=== PATIENT | male | born 1950 | race Caucasian/White ===

== ENCOUNTER 2020-05-16 12:08 | Day surgery (SDC) | payer MEDICARE, MEDICAID ==
[2020-05-11 13:28] LABS: BASOPHILS # (AUTO) 0.1 X10'3 (0-0.2); BASOPHILS % (AUTO) 0.7 % (0-1); EOSINOPHILS # (AUTO) 0.3 X10'3 (0-0.9); EOSINOPHILS % (AUTO) 2.3 % (0-6); HEMOGLOBIN 13.2 g/dl (14.0-17.9); LYMPHOCYTES # (AUTO) 3.1 X10'3 (1.1-4.8); LYMPHOCYTES % (AUTO) 24.7 % (21-51); MEAN CORPUSCULAR HEMOGLOBIN 33.3 PG (27.0-31.0); MEAN PLATELET VOLUME 7.4 FL (7.4-10.4); MONOCYTES # (AUTO) 0.8 X10'3 (0-0.9); MONOCYTES % (AUTO) 6.1 % (2-12); NEUTROPHILS # (AUTO) 8.3 X10'3 (1.8-7.7); NEUTROPHILS % (AUTO) 66.2 % (42-75); PLATELET COUNT 292 X10'3 (140-440); RED BLOOD COUNT 3.96 X10'6 (4.70-6.10); RED CELL DISTRIBUTION WIDTH 14.5 % (11.5-14.5); WHITE BLOOD COUNT 12.5 X10'3 (4.5-11.0)
[2020-05-11 13:38] LABS: ALBUMIN 3.7 G/DL (3.4-5.0); ANION GAP 7 (8-16); BLOOD UREA NITROGEN 19 MG/DL (7-18); BUN/CREATININE RATIO 18.3 (5.4-32.0); CALCIUM 9.4 MG/DL (8.5-10.1); CHLORIDE 105 MMOL/L (99-107); CREATININE 1.04 MG/DL (0.60-1.10); GLUCOSE 98 MG/DL (70-104); POTASSIUM 4.1 MMOL/L (3.5-5.1); SODIUM 142 MMOL/L (135-145); TOTAL CARBON DIOXIDE 30.1 MMOL/L (24-32); eGFR 71 ML/MIN
[2020-05-11 13:43] LABS: PARTIAL THROMBOPLASTIN TIME 29 SECONDS (22-32)
[2020-05-16] VITALS (10 sets, daily range): BP systolic 120–172; BP diastolic 52–86
[~2020-05-16] VITALS: Ht 170.2 cm; Wt 66.4 kg
[~2020-05-16 12:08] MED LIST: ASPI-1265 PO; LISI10TA27 PO; SPIIN INH
[2020-05-16] MEDS ORDERED: normal saline 1,000 ML IV SCH (12:40)
[2020-05-16] MEDS ORDERED: LORazepam 0.5 MG tablet PO PRN (12:40)
[2020-05-16] MEDS ORDERED: LIDOcaine/PRILOcaine 5gm cream TP ONE (12:40)
[2020-05-16] MEDS ORDERED: diphenhydrAMINE 25mg capsule PO PRN (12:40)
[2020-05-16] MEDS ORDERED: LISI20TA28 PO (13:54)
[2020-05-16] MEDS ORDERED: METO25TA6 PO (13:55)
[2020-05-16] MEDS ORDERED: LIDOcaine 1% (10mg/ml)w/preservative injection 20ml MDV ONE (14:16)
[2020-05-16] MEDS ORDERED: verapamil 2.5 mg/ml inj IV ONE (14:16)
[2020-05-16] MEDS ORDERED: nitroGLYCERIN-Tridil 50MG/D5W 250 ML IV ONE (14:16)
[2020-05-16] MEDS ORDERED: fentaNYL/PF 50MCG/1 ML 2ML syringe ONE (14:16)
[2020-05-16] MEDS ORDERED: midazolam 1 mg/ML 2ml injection ONE (14:16)
[2020-05-16] MEDS ORDERED: heparin 1,000unit/ml 10ml vial 10 ML ONE ×2 (14:17→14:43)
[2020-05-16] MEDS ORDERED: iohexol 350MG/ML 100ml bottle IV ONE ×2 (14:17→14:43)
[2020-05-16] MEDS ORDERED: ticagrelor 90mg tablet ONE (15:04)
[2020-05-16] MEDS ORDERED: ondansetron/PF 4mg/2ml inj IV PRN (16:00)
[2020-05-16] MEDS ORDERED: normal saline 1000ml 1,000 ML IV SCH (16:00)
[2020-05-16] MEDS ORDERED: proCHLORperazine 10 MG/2 ml inj IV PRN (16:00)
[2020-05-16] MEDS ORDERED: nitroGLYCERIN 0.4mg SUBLingual tab SL PRN (16:00)
[2020-05-16] MEDS ORDERED: OXAZEpam 15mg capsule PO PRN (16:00)
[2020-05-16] MEDS ORDERED: FLU VACC QS2020-21(6MOS UP)/PF 60 MCG/0.5 ML SYRINGE IMVAC ONE (18:25)
[2020-05-17] MEDS ORDERED: pneumococcal 23-VAL P-sac vacc 25 mcg/0.5ml vial IMVAC ONE (10:00)
== END 2020-05-16 19:30 | disposition home or self-care (01) ==
LOC: SSTAY O 12:08
PROVIDERS: ATTEND Internal Medicine Interventional Cardiology
DX: R94.39 Abnormal result of other cardiovascular function study (principal); R07.9 Chest pain, unspecified; I25.10 Atherosclerotic heart disease of native coronary artery without angina pectoris; I25.82 Chronic total occlusion of coronary artery; Z23 Encounter for immunization; J43.9 Emphysema, unspecified; I10 Essential (primary) hypertension; Z79.01 Long term (current) use of anticoagulants; Z79.82 Long term (current) use of aspirin; Z79.899 Other long term (current) drug therapy; Z98.890 Other specified postprocedural states; Z87.891 Personal history of nicotine dependence
CPT/HCPCS: 36415; 80048; 85025; 85610; 85730; 90732; 93005; 93458; 99152; C1725; C1751; C1769; C1874; C1894; C9600; G0008; G0009; J1644; J2001; J2250; J3010; J7030; Q0163; Q2039; Q9967; 99153; A4620; A5120; J3490

== ENCOUNTER 2021-08-07 10:51 | Day surgery (SDC) | payer MEDICARE, MEDICAID ==
[~2021-08-07] VITALS: Ht 170.2 cm; Wt 62.8 kg
[~2021-08-07 10:51] MED LIST changes: -LISI10TA27 PO; +LISI20TA28 PO; +LOP25T PO
[2021-08-07] MEDS ORDERED: ROSU20TA31 PO (11:38)
[2021-08-07] MEDS ORDERED: TICA90TA2 PO (11:38)
[2021-08-07] MEDS ORDERED: PANT40TA54 PO (11:38)
[2021-08-07] MEDS ORDERED: midazolam 1 mg/ML 2ml injection ONE (11:59)
[2021-08-07] MEDS ORDERED: fentaNYL/PF 50MCG/1 ML 2ML syringe ONE (12:00)
[2021-08-07] MEDS ORDERED: LIDOcaine 1%/PF 5ML 10 MG/ML VIAL ONE (12:00)
[2021-08-07] MEDS ORDERED: heparin sodium, porcine/PF 100unit/ml 5ML syringe ONE (12:00)
[2021-08-07] MEDS ORDERED: normal saline 1000ml 1,000 ML IV PRN (12:10)
[2021-08-07] MEDS ORDERED: normal saline 1000ml 1,000 ML IV SCH (12:20)
[2021-08-07 13:24] VITALS: BP 149/82
[2021-08-07 13:33] VITALS: BP 165/93
[2021-08-07 13:39] VITALS: BP 136/81
[2021-08-07 13:54] VITALS: BP 132/69
[2021-08-07 14:09] VITALS: BP 130/78
[2021-08-07 14:24] VITALS: BP 140/74
== END 2021-08-07 15:00 | disposition home or self-care (01) ==
LOC: SSTAY O 10:51
PROVIDERS: ATTEND Radiology Diagnostic Radiology
DX: C34.11 Malignant neoplasm of upper lobe, right bronchus or lung (principal); I25.10 Atherosclerotic heart disease of native coronary artery without angina pectoris; I10 Essential (primary) hypertension; E78.00 Pure hypercholesterolemia, unspecified; Z95.5 Presence of coronary angioplasty implant and graft; Z79.899 Other long term (current) drug therapy; Z79.82 Long term (current) use of aspirin
CPT/HCPCS: 36561; 76937; 77001; 99152; C1769; C1788; C1894; J1642; J2250; J3010; J3490; 99153

== ENCOUNTER 2021-08-20 08:09 | Emergency (ER) | payer MEDICARE, MEDICAID ==
[~2021-08-20] VITALS: Ht 170.2 cm; Wt 65.9 kg
[~2021-08-20 08:09] MED LIST changes: +PANT40TA54 PO; +ROSU20TA31 PO; +TICA90TA2 PO
[2021-08-20] MEDS ORDERED: bisacodyl 5mg tablet.DR PO ONE (08:40)
[2021-08-20] MEDS ORDERED: normal saline 1000ml 1,000 ML IV ONE (08:40)
[2021-08-20 09:12] LABS: BASOPHILS % (AUTO) 0.2 % (0-1); EOSINOPHILS # (AUTO) 0.1 X10'3 (0-0.9); EOSINOPHILS % (AUTO) 0.5 % (0-6); HEMOGLOBIN 12.3 g/dl (14.0-17.9); LYMPHOCYTES # (AUTO) 1.5 X10'3 (1.1-4.8); LYMPHOCYTES % (AUTO) 10.3 % (21-51); MEAN CORPUSCULAR HEMOGLOBIN 31.8 PG (27.0-31.0); MEAN CORPUSCULAR HGB CONC 33.4 g/dL (33.0-36.5); MEAN CORPUSCULAR VOLUME 95.2 FL (78-98); MEAN PLATELET VOLUME 7.5 FL (7.4-10.4); MONOCYTES # (AUTO) 0.4 X10'3 (0-0.9); MONOCYTES % (AUTO) 2.6 % (2-12); NEUTROPHILS # (AUTO) 12.6 X10'3 (1.8-7.7); NEUTROPHILS % (AUTO) 86.4 % (42-75); PLATELET COUNT 306 X10'3 (140-440); RED BLOOD COUNT 3.89 X10'6 (4.70-6.10); RED CELL DISTRIBUTION WIDTH 16.4 % (11.5-14.5); WHITE BLOOD COUNT 14.6 X10'3 (4.5-11.0)
[2021-08-20 09:26] LABS: ALANINE AMINOTRANSFERASE 24 U/L (12-78); ALBUMIN 2.9 G/DL (3.4-5.0); ALBUMIN/GLOBULIN RATIO 0.7 (1.1-1.5); ALKALINE PHOSPHATASE 100 IU/L (46-116); ANION GAP 7 (8-16); ASPARTATE AMINO TRANSFERASE 21 U/L (10-37); BILIRUBIN,TOTAL 0.4 MG/DL (0.1-1.0); BLOOD UREA NITROGEN 35 MG/DL (7-18); BUN/CREATININE RATIO 30.4 (5.4-32.0); CALCIUM 8.6 MG/DL (8.5-10.1); CHLORIDE 103 MMOL/L (99-107); CREATININE 1.15 MG/DL (0.60-1.10); GLUCOSE 96 MG/DL (70-104); MAGNESIUM 2.3 MG/DL (1.5-2.4); POTASSIUM 4.8 MMOL/L (3.5-5.1); SODIUM 135 MMOL/L (135-145); TOTAL CARBON DIOXIDE 24.9 MMOL/L (24-32); TOTAL PROTEIN 7.3 G/DL (6.4-8.2); eGFR 63 ML/MIN
[2021-08-20] MEDS ORDERED: LIDOcaine Viscous 15ml cup MM ONE (10:45)
--- NOTE | 2021-08-20 11:36 | NUR ---
nikita scott at bedside manually disimpacting pt with yfn bah rn at bedside assisting
[2021-08-20 12:07] VITALS: BP 165/79
[2021-08-20] MEDS ORDERED: BISA-78 PO (12:20)
[2021-08-20] MEDS ORDERED: POLY119P2 PO (12:20)
== END 2021-08-20 12:57 | disposition home or self-care (01) ==
LOC: ER 08:10
DX: K56.41 Fecal impaction (principal); E86.0 Dehydration; K62.5 Hemorrhage of anus and rectum; Z85.118 Personal history of other malignant neoplasm of bronchus and lung; Z79.82 Long term (current) use of aspirin; Z79.899 Other long term (current) drug therapy
CPT/HCPCS: 36415; 74018; 74176; 80053; 83735; 84145; 85025; 96360; 99285; J7030

== ENCOUNTER 2021-09-07 15:40 | Inpatient (IN) | payer MEDICARE, MEDICAID ==
[~2021-09-07] VITALS: Ht 170.2 cm; Wt 64.6 kg
[~2021-09-07 15:40] MED LIST changes: +BISA-78 PO; +POLY119P2 PO
[2021-09-07 17:12] LABS: BASOPHILS % (AUTO) 0.1 % (0-1); EOSINOPHILS % (AUTO) 0 % (0-6); HEMATOCRIT 33.7 % (42.0-52.0); HEMOGLOBIN 11.2 g/dl (14.0-17.9); LYMPHOCYTES # (AUTO) 0.3 X10'3 (1.1-4.8); LYMPHOCYTES % (AUTO) 2.3 % (21-51); MEAN CORPUSCULAR HEMOGLOBIN 31.3 PG (27.0-31.0); MEAN CORPUSCULAR HGB CONC 33.1 g/dL (33.0-36.5); MEAN CORPUSCULAR VOLUME 94.4 FL (78-98); MEAN PLATELET VOLUME 6.9 FL (7.4-10.4); MONOCYTES # (AUTO) 0.4 X10'3 (0-0.9); MONOCYTES % (AUTO) 3.2 % (2-12); NEUTROPHILS # (AUTO) 10.5 X10'3 (1.8-7.7); NEUTROPHILS % (AUTO) 94.4 % (42-75); PLATELET COUNT 126 X10'3 (140-440); RED BLOOD COUNT 3.57 X10'6 (4.70-6.10); RED CELL DISTRIBUTION WIDTH 16.8 % (11.5-14.5); WHITE BLOOD COUNT 11.1 X10'3 (4.5-11.0)
[2021-09-07 17:22] LABS: ALANINE AMINOTRANSFERASE 29 U/L (12-78); ALBUMIN 3.3 G/DL (3.4-5.0); ALBUMIN/GLOBULIN RATIO 0.8 (1.1-1.5); ALKALINE PHOSPHATASE 95 IU/L (46-116); ANION GAP 10 (8-16); ASPARTATE AMINO TRANSFERASE 22 U/L (10-37); BILIRUBIN,TOTAL 0.3 MG/DL (0.1-1.0); BLOOD UREA NITROGEN 30 MG/DL (7-18); BUN/CREATININE RATIO 23.1 (5.4-32.0); CALCIUM 8.9 MG/DL (8.5-10.1); CHLORIDE 101 MMOL/L (99-107); GLUCOSE 141 MG/DL (70-104); LIPASE 105 U/L (73-393); POTASSIUM 4.9 MMOL/L (3.5-5.1); SODIUM 138 MMOL/L (135-145); TOTAL CARBON DIOXIDE 26.9 MMOL/L (24-32); TOTAL PROTEIN 7.5 G/DL (6.4-8.2); eGFR 55 ML/MIN
[2021-09-07] MEDS ORDERED: temazepam 15mg capsule PO PRN (21:00)
[2021-09-07] MEDS ORDERED: mag hydrox/Alum hydrox/simeth 30ml oral suspension PO PRN (22:25)
[2021-09-07] MEDS ORDERED: bisacodyl 10mg suppository rectal RC PRN (22:25)
[2021-09-07] MEDS ORDERED: ipratropium/albuterol 3ml nebule NEB PRN (22:25)
[2021-09-07] MEDS ORDERED: diphenhydrAMINE 25mg capsule PO PRN (22:25)
[2021-09-07] MEDS ORDERED: HYDROcodone/acetaminophen 5mg/325mg tablet PO PRN (22:25)
[2021-09-07] MEDS ORDERED: diphenhydrAMINE 50 mg/ml inj IV PRN (22:25)
[2021-09-07] MEDS ORDERED: ondansetron 4mg rapidly disintigrating tab PO PRN (22:25)
[2021-09-07] MEDS ORDERED: acetaminophen 650mg rectal suppository RC PRN (22:25)
[2021-09-07] MEDS ORDERED: morphine 2 MG/ML inj. syringe IV PRN ×2 (22:25)
[2021-09-07] MEDS ORDERED: ondansetron/PF 4mg/2ml inj IV PRN (22:25)
[2021-09-07] MEDS ORDERED: magnesium hydroxide 30ml (MOM) UD suspension PO PRN (22:25)
[2021-09-07] MEDS ORDERED: acetaminophen 325mg tablet PO PRN ×2 (22:25)
[2021-09-07 22:53] LABS: HEMOGLOBIN A1C 6.2 % (4.5-6.2)
[2021-09-07 22:54] LABS: MAGNESIUM 2.1 MG/DL (1.5-2.4); PHOSPHORUS 4.1 MG/DL (2.3-4.5)
[2021-09-07] MEDS: dextrose 5%-1/2 normal saline 1,000 ML IV SCH (23:16)
[2021-09-07] MEDS: cefTRIAXone 1g/NS 100ml IVPB 100 ML IV SCH (23:31)
[2021-09-07 23:52] LABS: CREATINE KINASE 59 U/L (39-308)
[2021-09-08] VITALS (7 sets, daily range): BP systolic 106–150; BP diastolic 63–81
[2021-09-08 00:08] LABS: CLARITY,URINE SLIGHTLY CLOUDY (Clear); COLOR,URINE YELLOW (Yellow); GLUCOSE, URINE NEGATIVE (Neg); KETONES,URINE NEGATIVE (Neg); LEUKOCYTE ESTERASE ,URINE SMALL (Neg); NITRITES, URINE NEGATIVE (Neg); OCCULT BLOOD,URINE MODERATE (Neg); PROTEIN,URINE NEGATIVE (Neg); UROBILINOGEN,URINE 0.2 E.U/dL (0.2-1.0)
[2021-09-08] MEDS: azithromycin/NS 500mg/250ml 250 ML IV SCH (00:20)
[2021-09-08 00:21] LABS: UA COLLECTION TYPE CLN CATCH MIDSTREAM
[2021-09-08 00:22] LABS: BACTERIA,URINE NONE SEEN /HPF (Neg); SQUAMOUS EPITHELIAL CELL,UR FEW /LPF (FEW); WBC CLUMPS,URINE FEW /HPF (NEGATIVE); WBC,URINE 30-50 /HPF (0-4)
[2021-09-08] MEDS: mineral oil 133ml enema RC PRN ×2 (01:03→13:41)
[2021-09-08] MEDS ORDERED: ONDA-104 PO (05:10)
[2021-09-08] MEDS ORDERED: DOCU-148 PO (05:10)
[2021-09-08] MEDS ORDERED: POLY17PO59 PO (05:10)
[2021-09-08] MEDS ORDERED: METO-395 PO (05:10)
[2021-09-08 06:58] LABS: APTT 26 SECONDS (22-32)
[2021-09-08 07:00] LABS: BASOPHILS % (AUTO) 0.2 % (0-1); EOSINOPHILS % (AUTO) 0.2 % (0-6); HEMOGLOBIN 10.1 g/dl (14.0-17.9); LYMPHOCYTES # (AUTO) 0.3 X10'3 (1.1-4.8); LYMPHOCYTES % (AUTO) 4.5 % (21-51); MEAN CORPUSCULAR HEMOGLOBIN 32.1 PG (27.0-31.0); MEAN CORPUSCULAR HGB CONC 33.6 g/dL (33.0-36.5); MEAN CORPUSCULAR VOLUME 95.6 FL (78-98); MEAN PLATELET VOLUME 7.3 FL (7.4-10.4); MONOCYTES # (AUTO) 0.5 X10'3 (0-0.9); MONOCYTES % (AUTO) 6.3 % (2-12); NEUTROPHILS # (AUTO) 6.4 X10'3 (1.8-7.7); NEUTROPHILS % (AUTO) 88.8 % (42-75); PLATELET COUNT 102 X10'3 (140-440); RED BLOOD COUNT 3.13 X10'6 (4.70-6.10); RED CELL DISTRIBUTION WIDTH 16.8 % (11.5-14.5); WHITE BLOOD COUNT 7.2 X10'3 (4.5-11.0)
[2021-09-08 07:15] LABS: ALANINE AMINOTRANSFERASE 21 U/L (12-78); ALBUMIN 2.6 G/DL (3.4-5.0); ALBUMIN/GLOBULIN RATIO 0.8 (1.1-1.5); ALKALINE PHOSPHATASE 79 IU/L (46-116); ANION GAP 7 (8-16); ASPARTATE AMINO TRANSFERASE 21 U/L (10-37); BILIRUBIN,TOTAL 0.2 MG/DL (0.1-1.0); BLOOD UREA NITROGEN 31 MG/DL (7-18); BUN/CREATININE RATIO 31.3 (5.4-32.0); CHLORIDE 105 MMOL/L (99-107); CHOL/HDL RATIO 3.3 (0.00-4.99); CHOLESTEROL 121 MG/DL (0-200); CREATININE 0.99 MG/DL (0.60-1.10); GLUCOSE 102 MG/DL (70-104); HDL CHOLESTEROL 37 MG/DL (35-60); LDL CHOLESTEROL 58 MG/DL (50-100); POTASSIUM 4.1 MMOL/L (3.5-5.1); SODIUM 136 MMOL/L (135-145); TRIGLYCERIDES 176 MG/DL (20-135); eGFR 75 ML/MIN
[2021-09-08] MEDS: heparin, porcine 5000 units/ml vial SQ SCH ×2 (08:00→22:02)
[2021-09-08] MEDS: dextrose 5%-1/2 normal saline 1,000 ML IV SCH ×2 (08:25→21:02)
[2021-09-08] MEDS: methylPREDNISolone sod succ 125mg/2ml vial IV SCH ×2 (09:01→21:02)
[2021-09-08] MEDS: docusate sod 100mg capsule PO SCH ×2 (09:02→21:58)
[2021-09-08] MEDS: nicotine 21mg patch - 24 hr TD SCH (09:03)
--- NOTE | 2021-09-08 18:40 | NUR ---
Patient in room PCU 3025. I have received report from mahendra mercado and had the opportunity to ask questions and assume patient care.
[2021-09-09 02:00] VITALS: BP 113/67
--- NOTE | 2021-09-09 04:06 | NUR ---
AGREE WITH THERMODYNAMICS TEACHER ASSESSMENT CHARTED Addendum: 09/09/21 at 0407 by Anahy Ruth RN AGREE WITH THERMODYNAMICS TEACHER PHYSICAL ASSESSMENT CHARTED
[2021-09-09] MEDS: dextrose 5%-1/2 normal saline 1,000 ML IV SCH ×2 (04:25→05:59)
[2021-09-09 06:12] LABS: BASOPHILS % (AUTO) 0 % (0-1); EOSINOPHILS % (AUTO) 0 % (0-6); HEMATOCRIT 27.9 % (42.0-52.0); HEMOGLOBIN 9.3 g/dl (14.0-17.9); LYMPHOCYTES # (AUTO) 0.4 X10'3 (1.1-4.8); LYMPHOCYTES % (AUTO) 7.2 % (21-51); MEAN CORPUSCULAR HEMOGLOBIN 32.1 PG (27.0-31.0); MEAN CORPUSCULAR HGB CONC 33.4 g/dL (33.0-36.5); MEAN PLATELET VOLUME 7.1 FL (7.4-10.4); MONOCYTES # (AUTO) 0.2 X10'3 (0-0.9); MONOCYTES % (AUTO) 3.7 % (2-12); NEUTROPHILS # (AUTO) 4.3 X10'3 (1.8-7.7); NEUTROPHILS % (AUTO) 89.1 % (42-75); PLATELET COUNT 90 X10'3 (140-440); RED CELL DISTRIBUTION WIDTH 16.9 % (11.5-14.5); WHITE BLOOD COUNT 4.9 X10'3 (4.5-11.0)
[2021-09-09 06:32] LABS: ALANINE AMINOTRANSFERASE 20 U/L (12-78); ALBUMIN 2.5 G/DL (3.4-5.0); ALBUMIN/GLOBULIN RATIO 0.8 (1.1-1.5); ALKALINE PHOSPHATASE 70 IU/L (46-116); ANION GAP 9 (8-16); ASPARTATE AMINO TRANSFERASE 16 U/L (10-37); BILIRUBIN,TOTAL 0.1 MG/DL (0.1-1.0); BLOOD UREA NITROGEN 18 MG/DL (7-18); BUN/CREATININE RATIO 20.7 (5.4-32.0); CHLORIDE 107 MMOL/L (99-107); CREATININE 0.87 MG/DL (0.60-1.10); GLUCOSE 138 MG/DL (70-104); POTASSIUM 4.7 MMOL/L (3.5-5.1); SODIUM 140 MMOL/L (135-145); TOTAL CARBON DIOXIDE 24.3 MMOL/L (24-32); TOTAL PROTEIN 5.8 G/DL (6.4-8.2); eGFR 87 ML/MIN
--- NOTE | 2021-09-09 06:37 | NUR ---
Problems reprioritized. Patient report given, questions answered & plan of care reviewed with juan mercado.
[2021-09-09 07:00] VITALS: BP 141/72
--- NOTE | 2021-09-09 07:25 | NUR ---
Patient in room PCU 3025. I have received report from Ghada ROLLE and had the opportunity to ask questions and assume patient care.
[2021-09-09] MEDS ORDERED: FLO0.4C PO (07:53)
[2021-09-09] MEDS ORDERED: SENN-263 PO (07:53)
[2021-09-09] MEDS ORDERED: NICO-630 TOP (07:53)
[2021-09-09] MEDS ORDERED: LEVO500T90 PO (07:54)
[2021-09-09] MEDS: docusate sod 100mg capsule PO SCH (08:00)
[2021-09-09] MEDS: heparin, porcine 5000 units/ml vial SQ SCH (08:00)
[2021-09-09] MEDS: nicotine 21mg patch - 24 hr TD SCH (08:00)
[2021-09-09] MEDS: azithromycin/NS 500mg/250ml 250 ML IV SCH (09:15)
[2021-09-09] MEDS: methylPREDNISolone sod succ 125mg/2ml vial IV SCH (09:15)
[2021-09-09] MEDS: cefTRIAXone 1g/NS 100ml IVPB 100 ML IV SCH (09:15)
--- NOTE | 2021-09-09 13:00 | NUR ---
Discharge instructions reviewed and questions answered. Both IV's from R and L AC removed, catheters intact. Patients belongings gathered, and patient wheeled down to lobby and outside. Patient was in stable condition upon leaving [facility].
== END 2021-09-09 12:49 | disposition home or self-care (01) | DRG 690 ==
LOC: ER 15:41 → ED HOLD 22:31 → PCU 3S 09-08 00:05
PROVIDERS: ADMIT Family Medicine; ATTEND Internal Medicine
DX: N39.0 Urinary tract infection, site not specified (principal); C34.91 Malignant neoplasm of unspecified part of right bronchus or lung; J44.1 Chronic obstructive pulmonary disease with (acute) exacerbation; K56.609 Unspecified intestinal obstruction, unspecified as to partial versus complete obstruction; N17.9 Acute kidney failure, unspecified; K59.00 Constipation, unspecified; D64.9 Anemia, unspecified; D69.6 Thrombocytopenia, unspecified; E78.5 Hyperlipidemia, unspecified; I12.9 Hypertensive chronic kidney disease with stage 1 through stage 4 chronic kidney disease, or unspecified chronic kidney disease; K21.9 Gastro-esophageal reflux disease without esophagitis; N18.9 Chronic kidney disease, unspecified; F17.220 Nicotine dependence, chewing tobacco, uncomplicated; Z79.82 Long term (current) use of aspirin; Z79.899 Other long term (current) drug therapy; Z71.6 Tobacco abuse counseling
CPT/HCPCS: 36415; 71045; 74018; 74176; 80053; 80061; 81001; 81003; 82550; 83036; 83690; 83735; 83880; 84100; 84443; 84484; 85025; 85610; 85730; 87077; 87081; 87088; 87186; 93005; 94760; 99285; G0378; J0456; J0696; J1644; J2930; J7040; J7042; J7120; J7121

== ENCOUNTER 2021-09-17 11:06 | Observation (INO) | payer MEDICARE, MEDICAID ==
[~2021-09-17] VITALS: Ht 200.7 cm; Wt 65.9 kg
[~2021-09-17 11:06] MED LIST changes: -BISA-78 PO; +DOCU-148 PO; +FLO0.4C PO; +LEVO500T90 PO; -LOP25T PO; +METO-395 PO; +NICO-630 TOP; +ONDA-104 PO; -POLY119P2 PO; +POLY17PO59 PO; +SENN-263 PO; -TICA90TA2 PO
[2021-09-17] MEDS ORDERED: diltiazem 5mg/ml 5ml inj. IV ONE (11:25)
[2021-09-17] MEDS ORDERED: diltiazem-NS 100mg/100ml 100 ML IV ONE (11:25)
[2021-09-17] MEDS ORDERED: normal saline 1000ML IV soln IVB ONE ×2 (11:45)
[2021-09-17 11:52] LABS: BASOPHILS % (AUTO) 0.1 % (0-1); EOSINOPHILS % (AUTO) 0.2 % (0-6); HEMATOCRIT 31.2 % (42.0-52.0); HEMOGLOBIN 10.4 g/dl (14.0-17.9); LYMPHOCYTES # (AUTO) 0.5 X10'3 (1.1-4.8); LYMPHOCYTES % (AUTO) 12.4 % (21-51); MEAN CORPUSCULAR HEMOGLOBIN 31.5 PG (27.0-31.0); MEAN CORPUSCULAR HGB CONC 33.3 g/dL (33.0-36.5); MEAN CORPUSCULAR VOLUME 94.5 FL (78-98); MONOCYTES # (AUTO) 0.2 X10'3 (0-0.9); MONOCYTES % (AUTO) 5.4 % (2-12); NEUTROPHILS # (AUTO) 3.2 X10'3 (1.8-7.7); NEUTROPHILS % (AUTO) 81.9 % (42-75); PLATELET COUNT 63 X10'3 (140-440); RED CELL DISTRIBUTION WIDTH 17.6 % (11.5-14.5); WHITE BLOOD COUNT 3.9 X10'3 (4.5-11.0)
[2021-09-17 12:05] LABS: ALANINE AMINOTRANSFERASE 46 U/L (12-78); ALBUMIN 3.2 G/DL (3.4-5.0); ALBUMIN/GLOBULIN RATIO 0.9 (1.1-1.5); ALKALINE PHOSPHATASE 94 IU/L (46-116); ANION GAP 9 (8-16); ASPARTATE AMINO TRANSFERASE 30 U/L (10-37); BILIRUBIN,TOTAL 0.4 MG/DL (0.1-1.0); BLOOD UREA NITROGEN 19 MG/DL (7-18); CALCIUM 8.8 MG/DL (8.5-10.1); CHLORIDE 104 MMOL/L (99-107); GLUCOSE 108 MG/DL (70-104); POTASSIUM 3.8 MMOL/L (3.5-5.1); SODIUM 140 MMOL/L (135-145); TOTAL CARBON DIOXIDE 27.5 MMOL/L (24-32); TOTAL PROTEIN 6.9 G/DL (6.4-8.2); eGFR 74 ML/MIN
[2021-09-17] MEDS ORDERED: dexamethasone sod phosphate 10mg/ml inj IV STA (13:34)
[2021-09-17] MEDS ORDERED: calcium chloride 100 MG/1 ML inj IV ONE (13:35)
[2021-09-17 13:53] LABS: D-DIMER 1.24 MG/L FEU (0-0.50)
--- NOTE | 2021-09-17 14:38 | NUR ---
pt witnessed on the lithoplate maker to convert back to sinus rhythm at rate of 81bpm. edmd ohlfs aware and at bedside. cardizem drip stopped per ohlfs
[2021-09-17] MEDS ORDERED: magnesium 4gm in 100ml NS 100 ML IV PRN (15:35)
[2021-09-17] MEDS ORDERED: POTASSIUM BICARB 20meq eff tab 20 MEQ TABLET.EFF PO PRN ×2 (15:35)
[2021-09-17] MEDS ORDERED: magnesium 2GM in 50ml NS 50 ML IV PRN (15:35)
[2021-09-17] MEDS ORDERED: acetaminophen 325mg tablet PO PRN (15:35)
[2021-09-17] MEDS ORDERED: ondansetron/PF 4mg/2ml inj IV PRN (15:35)
[2021-09-17] MEDS ORDERED: magnesium Cl slow-release 64mg tablet PO PRN (15:35)
[2021-09-17] MEDS ORDERED: mag hydrox/Alum hydrox/simeth 30ml oral suspension PO PRN (15:35)
[2021-09-17] MEDS ORDERED: magnesium hydroxide 30ml (MOM) UD suspension PO PRN (15:35)
[2021-09-17] MEDS ORDERED: potassium CL 10mEq/100ml bag 100 ML IV PRN (15:35)
[2021-09-17] MEDS: normal saline 1000ml 1,000 ML IV SCH (16:18)
[2021-09-17] MEDS: docusate sod 100mg capsule PO SCH ×2 (20:00)
[2021-09-17] MEDS: K and/or MAG REPLACEMENT MC SCH (20:00)
[2021-09-17] MEDS: metoprolol succinate 25mg (24-HOUR) SR. Tablet PO SCH (20:27)
[2021-09-17] MEDS ORDERED: atorvastatin 20mg tablet PO SCH (21:00)
--- NOTE | 2021-09-17 23:44 | NUR ---
Patient in room ED 5. I have received report from Leana and had the opportunity to ask questions and assume patient care.
[2021-09-18 00:28] VITALS: BP 117/63
[2021-09-18 02:00] VITALS: BP 109/62
[2021-09-18] MEDS: normal saline 1000ml 1,000 ML IV SCH ×3 (02:20→11:30)
[2021-09-18 06:00] VITALS: BP 112/62
[2021-09-18 06:00] LABS: BASOPHILS % (AUTO) 0 % (0-1); EOSINOPHILS % (AUTO) 0 % (0-6); HEMATOCRIT 23.9 % (42.0-52.0); HEMOGLOBIN 8.1 g/dl (14.0-17.9); LYMPHOCYTES # (AUTO) 0.3 X10'3 (1.1-4.8); LYMPHOCYTES % (AUTO) 9.4 % (21-51); MEAN CORPUSCULAR HEMOGLOBIN 32.5 PG (27.0-31.0); MEAN CORPUSCULAR HGB CONC 33.9 g/dL (33.0-36.5); MEAN PLATELET VOLUME 6.8 FL (7.4-10.4); MONOCYTES # (AUTO) 0.1 X10'3 (0-0.9); MONOCYTES % (AUTO) 4.2 % (2-12); NEUTROPHILS # (AUTO) 2.7 X10'3 (1.8-7.7); NEUTROPHILS % (AUTO) 86.4 % (42-75); RED BLOOD COUNT 2.49 X10'6 (4.70-6.10); RED CELL DISTRIBUTION WIDTH 17.3 % (11.5-14.5); WHITE BLOOD COUNT 3.2 X10'3 (4.5-11.0)
[2021-09-18 06:08] LABS: ALBUMIN 2.3 G/DL (3.4-5.0); ANION GAP 6 (8-16); BLOOD UREA NITROGEN 22 MG/DL (7-18); BUN/CREATININE RATIO 26.5 (5.4-32.0); CALCIUM 8.2 MG/DL (8.5-10.1); CHLORIDE 108 MMOL/L (99-107); CREATININE 0.83 MG/DL (0.60-1.10); GLUCOSE 110 MG/DL (70-104); MAGNESIUM 1.8 MG/DL (1.5-2.4); POTASSIUM 4.5 MMOL/L (3.5-5.1); SODIUM 139 MMOL/L (135-145); TOTAL CARBON DIOXIDE 25.4 MMOL/L (24-32); eGFR > 90 ML/MIN
--- NOTE | 2021-09-18 06:19 | NUR ---
Patient in room PCU 3016. I have received report from Radha MATA and had the opportunity to ask questions and assume patient care.
[2021-09-18 06:31] LABS: PLATELET COUNT 47 X10'3 (140-440)
--- NOTE | 2021-09-18 06:58 | NUR ---
PAGER ID: [phone] MESSAGE: Monique Fong [phone] Re: Kamron [id number] Critical PLT 47 Yesterday was 64
[2021-09-18 07:16] LABS: ANISOCYTOSIS 1+; ELLIPTOCYTES 1+; PLATELET ESTIMATE DECREASED
[2021-09-18 07:17] LABS: ROULEAUX 1+
[2021-09-18 07:18] LABS: BURR CELLS FEW
[2021-09-18] MEDS ORDERED: aspirin 81mg tab.chew PO SCH (08:00)
[2021-09-18] MEDS ORDERED: ipratropium 0.5 MG/2.5ML nebule IH SCH (08:00)
[2021-09-18] MEDS ORDERED: tamsulosin 0.4mg capsule PO SCH (08:00)
[2021-09-18] MEDS: K and/or MAG REPLACEMENT MC SCH (08:00)
[2021-09-18] MEDS ORDERED: nicotine 7mg patch - 24hr TD SCH (08:00)
[2021-09-18] MEDS: docusate sod 100mg capsule PO SCH ×2 (08:00→09:24)
[2021-09-18] MEDS: metoprolol succinate 25mg (24-HOUR) SR. Tablet PO SCH (09:25)
[2021-09-18 10:00] VITALS: BP 122/60
[2021-09-18] MEDS ORDERED: APIX2.5T PO ×2 (10:54)
--- NOTE | 2021-09-18 15:37 | NUR ---
Patient discharge instructions reviewed with patient and patient verbalized understanding. Patients IV x2 dc'd cannula intact. Patients tele monitor dc'd. Patient states he has all his belongings. Patient taken via wheelchair to awaiting ride by PCT.
== END 2021-09-18 14:32 | disposition home or self-care (01) ==
LOC: ER 11:06 → ED HOLD 15:36 → INTOOBSV 15:36 → PCU 3S 09-18 00:13
PROVIDERS: ADMIT Family Medicine; ATTEND Family Medicine
DX: I48.20 Chronic atrial fibrillation, unspecified (principal); I95.9 Hypotension, unspecified; E86.0 Dehydration; C34.90 Malignant neoplasm of unspecified part of unspecified bronchus or lung; I25.10 Atherosclerotic heart disease of native coronary artery without angina pectoris; K21.9 Gastro-esophageal reflux disease without esophagitis; J43.9 Emphysema, unspecified; I10 Essential (primary) hypertension; I71.4 Abdominal aortic aneurysm, without rupture; E78.5 Hyperlipidemia, unspecified; E87.1 Hypo-osmolality and hyponatremia; D69.6 Thrombocytopenia, unspecified; N40.0 Benign prostatic hyperplasia without lower urinary tract symptoms; Z79.01 Long term (current) use of anticoagulants; Z79.82 Long term (current) use of aspirin; Z85.038 Personal history of other malignant neoplasm of large intestine; Z87.891 Personal history of nicotine dependence; Z95.5 Presence of coronary angioplasty implant and graft; Z79.899 Other long term (current) drug therapy
CPT/HCPCS: 36415; 71045; 80048; 80053; 83735; 83880; 84145; 84484; 85008; 85025; 85379; 94640; 94760; 96361; 96365; 96366; 96368; 96375; 96376; 97116; 97161; 97530; G0378; J1100; J3490; J7030; 96374; 99285

== ENCOUNTER 2022-04-17 12:41 | Emergency (ER) | payer MEDICARE, MEDICAID ==
[~2022-04-17] VITALS: Ht 170.2 cm; Wt 67.0 kg
[~2022-04-17 12:41] MED LIST changes: -FLO0.4C PO; -LEVO500T90 PO; -LISI20TA28 PO; -NICO-630 TOP; -ONDA-104 PO; -PANT40TA54 PO; -POLY17PO59 PO; -SENN-263 PO
[2022-04-17 12:47] VITALS: BP 161/85
[2022-04-17] MEDS: dexamethasone sod phosphate 10mg/ml inj IV STA (13:49)
[2022-04-17 13:51] LABS: BASOPHILS % (AUTO) 0.4 % (0-1); EOSINOPHILS # (AUTO) 0.1 X10'3 (0-0.9); EOSINOPHILS % (AUTO) 1.6 % (0-6); HEMOGLOBIN 13.5 g/dl (14.0-17.9); LYMPHOCYTES # (AUTO) 0.9 X10'3 (1.1-4.8); LYMPHOCYTES % (AUTO) 12.1 % (21-51); MEAN CORPUSCULAR HEMOGLOBIN 32.4 PG (27.0-31.0); MEAN CORPUSCULAR HGB CONC 33.1 g/dL (33.0-36.5); MEAN CORPUSCULAR VOLUME 97.9 FL (78-98); MEAN PLATELET VOLUME 6.7 FL (7.4-10.4); MONOCYTES # (AUTO) 0.5 X10'3 (0-0.9); MONOCYTES % (AUTO) 6.9 % (2-12); PLATELET COUNT 212 X10'3 (140-440); RED BLOOD COUNT 4.18 X10'6 (4.70-6.10); RED CELL DISTRIBUTION WIDTH 16.7 % (11.5-14.5); WHITE BLOOD COUNT 7.6 X10'3 (4.5-11.0)
[2022-04-17 14:01] LABS: APTT 33 SECONDS (22-32)
[2022-04-17 14:03] LABS: ALANINE AMINOTRANSFERASE 20 U/L (12-78); ALBUMIN 3.6 G/DL (3.4-5.0); ALBUMIN/GLOBULIN RATIO 0.9 (1.1-1.5); ALKALINE PHOSPHATASE 121 IU/L (46-116); ANION GAP 8 (8-16); ASPARTATE AMINO TRANSFERASE 31 U/L (10-37); BILIRUBIN,TOTAL 0.3 MG/DL (0.1-1.0); BLOOD UREA NITROGEN 22 MG/DL (7-18); BUN/CREATININE RATIO 18.8 (5.4-32.0); CALCIUM 9.1 MG/DL (8.5-10.1); CHLORIDE 105 MMOL/L (99-107); CREATININE 1.17 MG/DL (0.60-1.10); GLUCOSE 98 MG/DL (70-104); POTASSIUM 4.3 MMOL/L (3.5-5.1); SODIUM 141 MMOL/L (135-145); TOTAL CARBON DIOXIDE 28.5 MMOL/L (24-32); TOTAL PROTEIN 7.7 G/DL (6.4-8.2); eGFR 62 ML/MIN
== END 2022-04-17 14:39 | disposition left against medical advice (07) ==
LOC: ER 12:42
DX: C71.9 Malignant neoplasm of brain, unspecified (principal); J44.9 Chronic obstructive pulmonary disease, unspecified
CPT/HCPCS: 36415; 80053; 85025; 85610; 85730; 99283; J1100